=== PATIENT | male | born 1955 | race Caucasian/White ===

== ENCOUNTER 2022-02-13 08:03 | Outpatient (CLI) | payer MEDICARE, OTHER, SELFPAY ==
--- NOTE | 2022-02-13 08:14 | CT_ITS ---
EXAM: CT MAXILLOFACIAL WITHOUT INTRAVENOUS CONTRAST CLINICAL INDICATION: NASAL POLYP, NASAL CONGESTION Right sided nasal polyp, slight congestion. TECHNIQUE: Helically acquired images were obtained of the face without intravenous contrast. This CT exam was performed using one or more of the following dose reduction techniques: automated exposure control, adjustment of the mA and/or kV according to patient size, and/or use of iterative reconstruction technique. This report was created using [email or web address] report generation technology. RADIATION DOSE: CTDIvol = 33.06 mGy, DLP = 891.70 mGy-cm COMPARISON: None. FINDINGS: BONES/JOINTS: Unremarkable. No displaced fracture. No discrete lytic or blastic abnormalities. SOFT TISSUES: Unremarkable. No focal subcutaneous swelling. No discrete fluid collections. ORBITS: Unremarkable. Both globes are unremarkable. Extraocular muscles are normal. Retrobulbar fat appears unremarkable. SINUSES: Sinuses are clear. MASTOID AIR CELLS: Unremarkable as visualized. Clear. DENTAL: No acute findings. No periodontal osseous erosion. CT/Sinus/Facial Bone IMPRESSION: Sinuses are clear. Electronically Signed: Rahul Krueger MD at 20:48 EDT ,
== END 2022-02-13 23:59 | disposition home or self-care (01) ==
LOC: CT 08:10
PROVIDERS: PCP Family Medicine; Referring Provider Otolaryngology; Visit Provider Otolaryngology
DX: J33.0 Polyp of nasal cavity (principal); R09.81 Nasal congestion
CPT/HCPCS: 70486